=== PATIENT | female | born 1940 | race Caucasian/White ===

== ENCOUNTER 2019-04-17 02:24 | Inpatient (IN) | payer MEDICARE, MEDICAID ==
[2019-04-17] VITALS (10 sets, daily range): BP systolic 106–190; BP diastolic 55–120
[~2019-04-17] VITALS: Ht 157.5 cm; Wt 70.6 kg
[~2019-04-17 02:24] MED LIST: ALBU6.7H9 INH; ALEN70TA60 PO; ASPI-1265 PO; CALC-988 PO; CHOL200026 PO; FAMO20TA8 PO; NOR5T PO
[2019-04-17] MEDS ORDERED: nitroGLYCERIN 0.2mg/hour patch TD ONE (03:00)
[2019-04-17] MEDS ORDERED: aspirin 81mg tab.chew PO ONE (03:00)
[2019-04-17] MEDS ORDERED: methylPREDNISolone sod succ 125mg/2ml vial IV ONE (03:00)
[2019-04-17 03:11] LABS: BASOPHILS % (AUTO) 0.2 % (0-1); EOSINOPHILS # (AUTO) 0.1 X10'3 (0-0.9); EOSINOPHILS % (AUTO) 0.5 % (0-6); HEMATOCRIT 45.6 % (35.0-45.0); HEMOGLOBIN 14.8 g/dl (12.0-16.0); LYMPHOCYTES # (AUTO) 1.1 X10'3 (1.1-4.8); LYMPHOCYTES % (AUTO) 8.5 % (21-51); MEAN CORPUSCULAR HEMOGLOBIN 30.2 PG (27.0-31.0); MEAN CORPUSCULAR HGB CONC 32.4 g/dL (33.0-36.5); MEAN CORPUSCULAR VOLUME 93.1 FL (78-98); MEAN PLATELET VOLUME 9.4 FL (7.4-10.4); MONOCYTES # (AUTO) 0.9 X10'3 (0-0.9); MONOCYTES % (AUTO) 7.4 % (2-12); NEUTROPHILS # (AUTO) 10.6 X10'3 (1.8-7.7); NEUTROPHILS % (AUTO) 83.4 % (42-75); PLATELET COUNT 191 X10'3 (140-440); RED CELL DISTRIBUTION WIDTH 14.8 % (11.5-14.5); WHITE BLOOD COUNT 12.7 X10'3 (4.5-11.0)
[2019-04-17 03:18] LABS: ALANINE AMINOTRANSFERASE 27 U/L (12-78); ALBUMIN 3.6 G/DL (3.4-5.0); ALBUMIN/GLOBULIN RATIO 0.8 (1.1-1.5); ALKALINE PHOSPHATASE 74 IU/L (46-116); ANION GAP 5 (8-16); ASPARTATE AMINO TRANSFERASE 31 U/L (10-37); BILIRUBIN,TOTAL 0.6 MG/DL (0.1-1.0); BLOOD UREA NITROGEN 15 MG/DL (7-18); BUN/CREATININE RATIO 18.1 (6.6-38.0); CALCIUM 9.5 MG/DL (8.5-10.1); CHLORIDE 106 MMOL/L (99-107); CREATININE 0.83 MG/DL (0.40-0.90); GLUCOSE 147 MG/DL (70-104); POTASSIUM 4.1 MMOL/L (3.5-5.1); SODIUM 150 MMOL/L (135-145); TOTAL CARBON DIOXIDE 38.7 MMOL/L (24-32); TOTAL PROTEIN 8.1 G/DL (6.4-8.2); eGFR 67 ML/MIN
--- NOTE | 2019-04-17 03:18 | NUR ---
REWRAPPED THE PT IN WARMED BLANKET/ONE AROUND HER SHOULDERS. SHE IS COMFORTABLE.
[2019-04-17 03:26] LABS: ABG HCO3 38.4 mmol/L (22.0-26.0); ABG OXYGEN SATURATION 92.7 % (95-98); ABG PCO2 (T) 82.2 mmHg (35.0-45.0); ABG PH (T) 7.284 (7.350-7.450); ABG PO2 (T) 65.3 mmHg (83-108); FCOHb 1.5 % (0.5-1.5); FLOW 4 L/min; FMetHb 0.2 % (0.3-1.12); FO2Hb 91.1 % (94-100); PATIENT TEMPERATURE 36.4; RESPIRATORY RATE (OBSERVED) 18 b/min; TOTAL HEMOGLOBIN 14.7 G/dl (12.0-16.0)
[2019-04-17 03:27] LABS: MAGNESIUM 1.9 MG/DL (1.5-2.4)
[2019-04-17] MEDS ORDERED: magnesium 4gm in 100ml NS 100 ML IV PRN (04:10)
[2019-04-17] MEDS ORDERED: magnesium 2GM in 50ml NS 50 ML IV PRN (04:10)
[2019-04-17] MEDS ORDERED: HYDROcodone/acetaminophen 5mg/325mg tablet PO PRN (04:10)
[2019-04-17] MEDS ORDERED: potassium Cl 20 mEq SR tablet PO PRN ×2 (04:10)
[2019-04-17] MEDS ORDERED: acetaminophen 325mg tablet PO PRN ×2 (04:10)
[2019-04-17] MEDS ORDERED: diphenhydrAMINE 50 mg/ml inj IV PRN (04:10)
[2019-04-17] MEDS ORDERED: diphenhydrAMINE 25mg capsule PO PRN (04:10)
[2019-04-17] MEDS ORDERED: ondansetron/PF 4mg/2ml inj IV PRN (04:10)
[2019-04-17] MEDS ORDERED: bisacodyl 10mg suppository rectal RC PRN (04:10)
[2019-04-17] MEDS ORDERED: acetaminophen 650mg rectal suppository RC PRN (04:10)
[2019-04-17] MEDS ORDERED: potassium CL 10mEq/100ml bag 100 ML IV PRN ×2 (04:10)
[2019-04-17] MEDS ORDERED: ipratropium/albuterol 3ml nebule NEB PRN (04:10)
[2019-04-17] MEDS ORDERED: magnesium hydroxide 30ml (MOM) UD suspension PO PRN (04:10)
[2019-04-17] MEDS ORDERED: metoclopramide 5 mg/ml inj IV PRN (04:10)
[2019-04-17] MEDS ORDERED: magnesium Cl slow-release 64mg tablet PO PRN (04:10)
[2019-04-17] MEDS ORDERED: mag hydrox/Alum hydrox/simeth 30ml oral suspension PO PRN (04:10)
[2019-04-17] MEDS ORDERED: [UNRECOGNIZED DRUG - OTHER] INH (04:11)
[2019-04-17] MEDS ORDERED: MONT10TA24 PO (04:11)
[2019-04-17] MEDS ORDERED: furosemide 40mg/4ml inj IV ONE (04:15)
--- NOTE | 2019-04-17 04:19 | NUR ---
assisted RT with ABG. Gave the pt some water and turned off the lights. She said that she is feeling alot better. Improved aeration
[2019-04-17 04:21] LABS: ABG BASE EXCESS 9.3 mmol/L (-2.0-3.0); ABG HCO3 38.3 mmol/L (22.0-26.0); ABG OXYGEN SATURATION 95.4 % (95-98); ABG PCO2 (T) 72.3 mmHg (35.0-45.0); ABG PO2 (T) 72.8 mmHg (83-108); ALLEN'S TEST Positive; FCOHb 1.1 % (0.5-1.5); FMetHb 0.2 % (0.3-1.12); FO2Hb 94.2 % (94-100); MINUTE VOLUME 14 L/min; PATIENT TEMPERATURE 36.4; RESPIRATORY RATE 18 b/min; RESPIRATORY RATE (OBSERVED) 22 b/min; TIDAL VOLUME 606 mL; TOTAL HEMOGLOBIN 14.3 G/dl (12.0-16.0)
[2019-04-17] MEDS ORDERED: dextrose 5%-water 1,000 ML IV SCH (04:25)
[2019-04-17 04:45] LABS: HEMOGLOBIN A1C 5.2 % (4.5-6.2)
[2019-04-17 04:54] LABS: PHOSPHORUS 3.4 MG/DL (2.3-4.5)
--- NOTE | 2019-04-17 05:20 | NUR ---
Received report from ER about pt
--- NOTE | 2019-04-17 05:20 | NUR ---
pt arrived via [place]. she moved herself to bed and then to another bed when first one did not work. She absolutely insisted on walking to toilet to void. ambulated well with walker and stand by assistance and portable oxygen. Skin check and MRSA swab done. oriented to unit. Bed low and locked. call light given to pt. RT set up bipap. pt on mobile monitor. She was wearing brief on arrival but did allow it to be removed.
--- NOTE | 2019-04-17 05:30 | NUR ---
Skin assessment performed on pt, no abnormalities. Pt on bipap FiO2 60%, Dextrose 5% running as ordered, pt hooked up to mobile monitor, will continue to monitor vital signs. pt did ambulate to the bathroom with walker and oxygen via NC, stand by assist. bed low and locked, side rails up x2, call light is within reach
--- NOTE | 2019-04-17 06:24 | NUR ---
Problems reprioritized. Patient report given, questions answered & plan of care reviewed with Serena LAUREANO.
--- NOTE | 2019-04-17 06:27 | NUR ---
Problems reprioritized. Patient report given, questions answered & plan of care reviewed with Serena LAUREANO.
--- NOTE | 2019-04-17 06:27 | NUR ---
Orientee documentation: I have reviewed and agree with all interventions, meds given, assessments performed and documented by Carly LAUREANO.
[2019-04-17] MEDS: CefTRIAXone/D5W-Rocephin 1gm 50 ML IV SCH ×2 (06:45→10:18)
--- NOTE | 2019-04-17 07:00 | NUR ---
Patient in room PCU 3012. I have received report from Carlos LAUREANO and had the opportunity to ask questions and assume patient care.
[2019-04-17] MEDS: ipratropium/albuterol 3ml nebule NEB SCH ×5 (07:12→23:22)
--- NOTE | 2019-04-17 07:25 | NUR ---
Patient on BIPAP and breakfast tray arrives, patient requesting to eat. Suggested to patient that she may need to be on bipap for a bit to improve her respiratory status. Patient refused she stated "let me , I want to eat." Again made patient aware of risk of removing bipap too early could make things worse.
--- NOTE | 2019-04-17 07:35 | NUR ---
[place] hospitalist, "Charlette [phone] Jackie Diallo." Addendum: 04/17/19 at 0747 by Charlette Davis RN WRONG PATIENT CHART, DOCUMENTED ON WRONG PATIENT.
--- NOTE | 2019-04-17 07:46 | NUR ---
WRONG PATIENT CHART, DOCUMENTED ON WRONG PATIENT. Addendum: 04/17/19 at 0748 by Charlette Davis RN AMENDED INCORRECT NOTE
--- NOTE | 2019-04-17 07:46 | NUR ---
Paged hospitalist, "Charlette [facility]- Room 3012 Stacie ToreyJuliette has HTN of 190/120 (manual BP) HR 119, can we have PRN medication to bring it down?"
[2019-04-17] MEDS: enoxaparin 40mg/0.4ml syringe SUBCUT SCH (08:00)
[2019-04-17] MEDS ORDERED: aspirin 81mg tab.chew PO SCH (08:00)
[2019-04-17] MEDS: K and/or MAG REPLACEMENT MC SCH (08:00)
[2019-04-17] MEDS: amLODIPine 5mg tablet PO SCH (08:10)
[2019-04-17] MEDS: furosemide 40mg/4ml inj IV SCH ×2 (08:10→19:59)
--- NOTE | 2019-04-17 08:15 | NUR ---
Patient has been given amlodipine and lasix as requested by her primary nurse, Charlette. Patients BP 160/68 with a MAP of (88).
[2019-04-17] MEDS: famotidine 20mg tablet PO SCH ×2 (10:17→19:59)
[2019-04-17] MEDS: methylPREDNISolone sod succ/PF 40mg inj. IV SCH ×3 (10:17→19:59)
[2019-04-17] MEDS: aspirin 81mg tablet.DR PO SCH (10:18)
[2019-04-17] MEDS: lactobacillus rhamnosus 10,000 MMU CELLS/CAPSULE PO SCH ×2 (10:35→19:59)
[2019-04-17] MEDS ORDERED: FLUT16SP26 (14:03)
--- NOTE | 2019-04-17 20:55 | NUR ---
Patient in room PCU 3012. I have received report from Charlette and had the opportunity to ask questions and assume patient care. Chart was reviewed.
[2019-04-17] MEDS ORDERED: temazepam 15mg capsule PO PRN (21:00)
[2019-04-18] MEDS: methylPREDNISolone sod succ/PF 40mg inj. IV SCH ×4 (02:04→20:58)
[2019-04-18 03:00] VITALS: BP 137/66
[2019-04-18 06:00] VITALS: BP 144/70
[2019-04-18 06:10] LABS: BASOPHILS % (AUTO) 0 % (0-1); EOSINOPHILS % (AUTO) 0 % (0-6); HEMATOCRIT 42.4 % (35.0-45.0); HEMOGLOBIN 13.8 g/dl (12.0-16.0); LYMPHOCYTES # (AUTO) 0.3 X10'3 (1.1-4.8); LYMPHOCYTES % (AUTO) 1.6 % (21-51); MEAN CORPUSCULAR HEMOGLOBIN 30.2 PG (27.0-31.0); MEAN CORPUSCULAR HGB CONC 32.6 g/dL (33.0-36.5); MEAN CORPUSCULAR VOLUME 92.6 FL (78-98); MEAN PLATELET VOLUME 9.5 FL (7.4-10.4); MONOCYTES # (AUTO) 0.4 X10'3 (0-0.9); MONOCYTES % (AUTO) 2.5 % (2-12); NEUTROPHILS # (AUTO) 15.8 X10'3 (1.8-7.7); NEUTROPHILS % (AUTO) 95.9 % (42-75); PLATELET COUNT 193 X10'3 (140-440); RED BLOOD COUNT 4.58 X10'6 (4.20-5.60); RED CELL DISTRIBUTION WIDTH 14.8 % (11.5-14.5); WHITE BLOOD COUNT 16.5 X10'3 (4.5-11.0)
[2019-04-18 06:14] LABS: ALANINE AMINOTRANSFERASE 22 U/L (12-78); ALBUMIN 3.4 G/DL (3.4-5.0); ALBUMIN/GLOBULIN RATIO 0.8 (1.1-1.5); ALKALINE PHOSPHATASE 64 IU/L (46-116); ANION GAP 3 (8-16); ASPARTATE AMINO TRANSFERASE 18 U/L (10-37); BILIRUBIN,TOTAL 0.3 MG/DL (0.1-1.0); BLOOD UREA NITROGEN 31 MG/DL (7-18); CALCIUM 9.1 MG/DL (8.5-10.1); CHLORIDE 105 MMOL/L (99-107); CHOL/HDL RATIO 2.1 (0.00-4.99); CHOLESTEROL 179 MG/DL (0-200); CREATININE 0.94 MG/DL (0.40-0.90); GLUCOSE 161 MG/DL (70-104); HDL CHOLESTEROL 85 MG/DL (35-60); LDL CHOLESTEROL 85 MG/DL (50-100); MAGNESIUM 1.9 MG/DL (1.5-2.4); PHOSPHORUS 2.2 MG/DL (2.3-4.5); POTASSIUM 3.6 MMOL/L (3.5-5.1); SODIUM 149 MMOL/L (135-145); TOTAL PROTEIN 7.6 G/DL (6.4-8.2); TRIGLYCERIDES 34 MG/DL (20-135); eGFR 58 ML/MIN
[2019-04-18 06:25] LABS: TOTAL CARBON DIOXIDE 40.6 MMOL/L (24-32)
--- NOTE | 2019-04-18 06:30 | NUR ---
Patient in room PCU 3012. I have received report from Cristian LAUREANO and Con RN and had the opportunity to ask questions and assume patient care.
--- NOTE | 2019-04-18 06:34 | NUR ---
Reported to Dr. Sigala in regards to critical CO2 of 40.6, no new orders at this time.
--- NOTE | 2019-04-18 06:34 | NUR ---
Problems reprioritized. Patient report given, questions answered & plan of care reviewed with Carmella.
[2019-04-18] MEDS: ipratropium/albuterol 3ml nebule NEB SCH ×5 (07:20→23:42)
[2019-04-18] MEDS: famotidine 20mg tablet PO SCH ×2 (07:27→20:59)
[2019-04-18] MEDS: CefTRIAXone/D5W-Rocephin 1gm 50 ML IV SCH (07:27)
[2019-04-18] MEDS: amLODIPine 5mg tablet PO SCH (07:27)
[2019-04-18] MEDS: lactobacillus rhamnosus 10,000 MMU CELLS/CAPSULE PO SCH ×2 (07:27→20:59)
[2019-04-18] MEDS: furosemide 40mg/4ml inj IV SCH (07:28)
[2019-04-18] MEDS: enoxaparin 40mg/0.4ml syringe SUBCUT SCH (07:37)
[2019-04-18] MEDS: K and/or MAG REPLACEMENT MC SCH (08:00)
[2019-04-18] MEDS: aspirin 81mg tablet.DR PO SCH (08:27)
[2019-04-18 11:00] VITALS: BP 110/63
--- NOTE | 2019-04-18 11:23 | NUR ---
PAGER ID: [phone] MESSAGE: [id number] Juliette Lema: NIURKA HR is trending in the 100's-110's at rest and up to 130's with activity, pt denies discomfort and asymptamatic. Thanks Jacquelin [phone]
[2019-04-18 15:00] VITALS: BP 136/53
[2019-04-18 16:11] LABS: ABG BASE EXCESS 12.2 mmol/L (-2.0-3.0); ABG HCO3 38.8 mmol/L (22.0-26.0); ABG OXYGEN SATURATION 92.9 % (95-98); ABG PCO2 (T) 57.4 mmHg (35.0-45.0); ABG PH (T) 7.448 (7.350-7.450); ABG PO2 (T) 59.4 mmHg (83-108); ALLEN'S TEST Positive; FCOHb 0.7 % (0.5-1.5); FLOW 1 L/min; FMetHb 0.5 % (0.3-1.12); FO2Hb 91.8 % (94-100); TOTAL HEMOGLOBIN 14.7 G/dl (12.0-16.0)
[2019-04-18 18:00] VITALS: BP 131/50
--- NOTE | 2019-04-18 18:44 | NUR ---
Problems reprioritized. Patient report given, questions answered & plan of care reviewed with Mirella LAUREANO.
--- NOTE | 2019-04-18 19:03 | NUR ---
Patient in room PCU 3012. I have received report from zafar Alejo and had the opportunity to ask questions and assume patient care.
[2019-04-18] MEDS: magnesium Cl slow-release 64mg tablet PO SCH (21:00)
[2019-04-18] MEDS: Neutra Phos packet PO SCH (21:01)
[2019-04-18 23:00] VITALS: BP 136/53
[2019-04-19] MEDS: methylPREDNISolone sod succ/PF 40mg inj. IV SCH ×3 (02:00→13:38)
[2019-04-19 03:00] VITALS: BP 157/69
[2019-04-19 06:00] VITALS: BP 154/86
[2019-04-19 06:08] LABS: BASOPHILS % (AUTO) 0 % (0-1); EOSINOPHILS % (AUTO) 0 % (0-6); HEMATOCRIT 43.1 % (35.0-45.0); HEMOGLOBIN 13.9 g/dl (12.0-16.0); LYMPHOCYTES # (AUTO) 0.2 X10'3 (1.1-4.8); LYMPHOCYTES % (AUTO) 1.2 % (21-51); MEAN CORPUSCULAR HGB CONC 32.2 g/dL (33.0-36.5); MEAN CORPUSCULAR VOLUME 93.2 FL (78-98); MEAN PLATELET VOLUME 9.6 FL (7.4-10.4); MONOCYTES # (AUTO) 0.4 X10'3 (0-0.9); MONOCYTES % (AUTO) 2.4 % (2-12); NEUTROPHILS # (AUTO) 15.9 X10'3 (1.8-7.7); NEUTROPHILS % (AUTO) 96.4 % (42-75); PLATELET COUNT 212 X10'3 (140-440); RED BLOOD COUNT 4.63 X10'6 (4.20-5.60); RED CELL DISTRIBUTION WIDTH 15.1 % (11.5-14.5); WHITE BLOOD COUNT 16.5 X10'3 (4.5-11.0)
--- NOTE | 2019-04-19 06:15 | NUR ---
Problems reprioritized. Patient report given, questions answered & plan of care reviewed with Jacquelin LAUREANO.
[2019-04-19 06:35] LABS: ALANINE AMINOTRANSFERASE 20 U/L (12-78); ALBUMIN 3.3 G/DL (3.4-5.0); ALBUMIN/GLOBULIN RATIO 0.8 (1.1-1.5); ALKALINE PHOSPHATASE 58 IU/L (46-116); ANION GAP 5 (8-16); ASPARTATE AMINO TRANSFERASE 17 U/L (10-37); BILIRUBIN,TOTAL 0.3 MG/DL (0.1-1.0); BLOOD UREA NITROGEN 48 MG/DL (7-18); BUN/CREATININE RATIO 46.2 (6.6-38.0); CHLORIDE 105 MMOL/L (99-107); CREATININE 1.04 MG/DL (0.40-0.90); GLUCOSE 147 MG/DL (70-104); MAGNESIUM 2.2 MG/DL (1.5-2.4); PHOSPHORUS 3.8 MG/DL (2.3-4.5); SODIUM 152 MMOL/L (135-145); TOTAL PROTEIN 7.3 G/DL (6.4-8.2); eGFR 51 ML/MIN
[2019-04-19 07:01] LABS: TOTAL CARBON DIOXIDE 41.6 MMOL/L (24-32)
[2019-04-19] MEDS: ipratropium/albuterol 3ml nebule NEB SCH ×3 (07:16→15:14)
[2019-04-19] MEDS: enoxaparin 40mg/0.4ml syringe SUBCUT SCH ×2 (08:00→08:55)
[2019-04-19] MEDS ORDERED: furosemide 40mg tablet PO SCH (08:00)
[2019-04-19] MEDS: K and/or MAG REPLACEMENT MC SCH (08:00)
[2019-04-19] MEDS: lactobacillus rhamnosus 10,000 MMU CELLS/CAPSULE PO SCH (08:51)
[2019-04-19] MEDS: amLODIPine 5mg tablet PO SCH (08:53)
[2019-04-19] MEDS: aspirin 81mg tablet.DR PO SCH (08:53)
[2019-04-19] MEDS: Neutra Phos packet PO SCH ×2 (08:54→13:38)
[2019-04-19] MEDS: CefTRIAXone/D5W-Rocephin 1gm 50 ML IV SCH (08:54)
[2019-04-19] MEDS: magnesium Cl slow-release 64mg tablet PO SCH (08:54)
[2019-04-19] MEDS: famotidine 20mg tablet PO SCH (08:54)
[2019-04-19] MEDS: acetaZOLAMIDE 250mg tablet PO SCH ×3 (08:58→16:44)
--- NOTE | 2019-04-19 11:39 | NUR ---
PAGER ID: [phone] MESSAGE: [phone] Juliette Lema: NIURKA she states she can not go back home and will want to go to [facility], I will inform case management. Thanks Jacquelin
[2019-04-19 14:31] LABS: ALBUMIN 3.3 G/DL (3.4-5.0); ANION GAP 6 (8-16); BLOOD UREA NITROGEN 49 MG/DL (7-18); BUN/CREATININE RATIO 45.8 (6.6-38.0); CALCIUM 9.3 MG/DL (8.5-10.1); CHLORIDE 104 MMOL/L (99-107); CREATININE 1.07 MG/DL (0.40-0.90); GLUCOSE 172 MG/DL (70-104); POTASSIUM 3.4 MMOL/L (3.5-5.1); SODIUM 149 MMOL/L (135-145); TOTAL CARBON DIOXIDE 39.1 MMOL/L (24-32); eGFR 50 ML/MIN
[2019-04-19 14:40] LABS: ABG BASE EXCESS 12.3 mmol/L (-2.0-3.0); ABG HCO3 40.1 mmol/L (22.0-26.0); ABG PCO2 (T) 65.3 mmHg (35.0-45.0); ABG PH (T) 7.406 (7.350-7.450); ABG PO2 (T) 75.1 mmHg (83-108); FCOHb 0.2 % (0.5-1.5); FLOW 2 L/min; FMetHb 0.3 % (0.3-1.12); FO2Hb 94.5 % (94-100); TOTAL HEMOGLOBIN 14.8 G/dl (12.0-16.0)
[2019-04-19 15:00] VITALS: BP 130/71
--- NOTE | 2019-04-19 15:16 | NUR ---
PAGER ID: [phone] MESSAGE: # [id number], K, received ABG, CO2 is up to 65.3 from 57.4, post BiPap. Thank you. -GEORGI Polanco
[2019-04-19] MEDS ORDERED: ACET250T3 PO (15:36)
[2019-04-19] MEDS ORDERED: AMOX-422 PO (15:36)
[2019-04-19] MEDS ORDERED: PRED20TA PO (15:36)
--- NOTE | 2019-04-19 17:45 | NUR ---
Pt is stable for discharge per md orders, discharge instructions reviewed w/ pt and caregiver all questions answered, new medication prescription called in to [facility] per pt preference, tele monitor 59 removed and returned, PIV d/c'ed and clean dry dressing in place, Pt wheeled to lobby with hospital staff, Pt discharged at 1730 w/ caregiver in private vehicle, all belongings w/ pt at time of discharge.
[2019-04-20] MEDS ORDERED: furosemide 40mg tablet PO SCH (08:00)
== END 2019-04-19 17:30 | disposition home health service (06) | DRG 189 ==
LOC: ER 02:24 → PCU 3S 05:04 → CMPBEDREQ 05:07
PROVIDERS: ADMIT Family Medicine; ATTEND Family Medicine
PROC: 5A09357 Assistance with Respiratory Ventilation, Less than 24 Consecutive Hours, Continuous Positive Airway Pressure (ICD-10-PCS; principal; 2019-04-17)
PROC: 5A09357 Assistance with Respiratory Ventilation, Less than 24 Consecutive Hours, Continuous Positive Airway Pressure (ICD-10-PCS; 2019-04-19)
DX: J96.22 Acute and chronic respiratory failure with hypercapnia (principal); I50.33 Acute on chronic diastolic (congestive) heart failure; I21.A1 Myocardial infarction type 2; I13.0 Hypertensive heart and chronic kidney disease with heart failure and stage 1 through stage 4 chronic kidney disease, or unspecified chronic kidney disease; J44.1 Chronic obstructive pulmonary disease with (acute) exacerbation; I24.9 Acute ischemic heart disease, unspecified; E87.0 Hyperosmolality and hypernatremia; J96.21 Acute and chronic respiratory failure with hypoxia; G47.33 Obstructive sleep apnea (adult) (pediatric); M81.0 Age-related osteoporosis without current pathological fracture; N18.9 Chronic kidney disease, unspecified; Z91.19 Patient's noncompliance with other medical treatment and regimen; Z99.81 Dependence on supplemental oxygen; Z91.041 Radiographic dye allergy status; Z91.048 Other nonmedicinal substance allergy status; Z85.05 Personal history of malignant neoplasm of liver
CPT/HCPCS: 36415; 36600; 71045; 80048; 80053; 80061; 82803; 83036; 83735; 83880; 84100; 84443; 84484; 85018; 85025; 85610; 87081; 93005; 94640; 94660; 94760; 96374; 96375; 97112; 97116; 97161; 97530; 97535; 99285; G0378; J0696; J1650; J1940; J2920; J2930; J7070

== ENCOUNTER 2019-06-02 12:02 | Emergency (ER) | payer MEDICARE, MEDICAID ==
[~2019-06-02] VITALS: Ht 165.1 cm; Wt 62.0 kg
[~2019-06-02 12:02] MED LIST changes: +ACET250T3 PO; +FLUT16SP26; +MONT10TA24 PO
--- NOTE | 2019-06-02 12:27 | NUR ---
PT CAREGIVER IS MARIETTASA GUADALUPE, LEAVING THE BEDSIDE, CONTACT INFO CELL: [id number]. OK TO SHARE MEDICAL INFORMATION WITH.
[2019-06-02] MEDS ORDERED: ipratropium/albuterol 3ml nebule NEB ONE (12:30)
--- NOTE | 2019-06-02 12:34 | NUR ---
updated pt katy to level 3, pt is stable, sp02 97% on 2l nc. pt wheres 2l nc home o2.
[2019-06-02 12:37] LABS: BASOPHILS % (AUTO) 0.5 % (0-1); EOSINOPHILS # (AUTO) 0.2 X10'3 (0-0.9); EOSINOPHILS % (AUTO) 1.9 % (0-6); HEMATOCRIT 42.9 % (35.0-45.0); LYMPHOCYTES % (AUTO) 10.4 % (21-51); MEAN CORPUSCULAR HEMOGLOBIN 30.2 PG (27.0-31.0); MEAN CORPUSCULAR HGB CONC 32.7 g/dL (33.0-36.5); MEAN CORPUSCULAR VOLUME 92.3 FL (78-98); MEAN PLATELET VOLUME 9.3 FL (7.4-10.4); MONOCYTES # (AUTO) 0.8 X10'3 (0-0.9); MONOCYTES % (AUTO) 7.9 % (2-12); NEUTROPHILS # (AUTO) 7.6 X10'3 (1.8-7.7); NEUTROPHILS % (AUTO) 79.3 % (42-75); PLATELET COUNT 172 X10'3 (140-440); RED BLOOD COUNT 4.65 X10'6 (4.20-5.60); RED CELL DISTRIBUTION WIDTH 14.9 % (11.5-14.5); WHITE BLOOD COUNT 9.6 X10'3 (4.5-11.0)
[2019-06-02 12:52] LABS: PARTIAL THROMBOPLASTIN TIME 26 SECONDS (22-32)
[2019-06-02 12:54] LABS: ALANINE AMINOTRANSFERASE 18 U/L (12-78); ALBUMIN 3.7 G/DL (3.4-5.0); ALBUMIN/GLOBULIN RATIO 0.8 (1.1-1.5); ALKALINE PHOSPHATASE 71 IU/L (46-116); ANION GAP 2 (8-16); ASPARTATE AMINO TRANSFERASE 24 U/L (10-37); BILIRUBIN,TOTAL 0.4 MG/DL (0.1-1.0); BLOOD UREA NITROGEN 20 MG/DL (7-18); BUN/CREATININE RATIO 28.6 (6.6-38.0); CALCIUM 9.4 MG/DL (8.5-10.1); CHLORIDE 104 MMOL/L (99-107); GLUCOSE 118 MG/DL (70-104); POTASSIUM 4.7 MMOL/L (3.5-5.1); SODIUM 145 MMOL/L (135-145); TOTAL CARBON DIOXIDE 39.2 MMOL/L (24-32); TOTAL PROTEIN 8.1 G/DL (6.4-8.2); eGFR 81 ML/MIN
[2019-06-02 13:22] VITALS: BP 160/98
== END 2019-06-02 14:03 | disposition home or self-care (01) ==
LOC: ER 12:03
DX: R06.00 Dyspnea, unspecified (principal); R06.02 Shortness of breath; R60.0 Localized edema; I10 Essential (primary) hypertension; J44.9 Chronic obstructive pulmonary disease, unspecified; M81.0 Age-related osteoporosis without current pathological fracture; Z87.891 Personal history of nicotine dependence; Z88.8 Allergy status to other drugs, medicaments and biological substances; Z79.82 Long term (current) use of aspirin; Z79.899 Other long term (current) drug therapy; Z99.81 Dependence on supplemental oxygen
CPT/HCPCS: 36415; 71045; 80053; 83605; 83880; 85025; 85610; 85730; 87040; 93005; 94640; 94760; 99284

== ENCOUNTER 2019-06-16 18:31 | Inpatient (IN) | payer MEDICARE, MEDICAID ==
[~2019-06-16] VITALS: Ht 157.5 cm; Wt 85.0 kg
[2019-06-16] MEDS ORDERED: ipratropium/albuterol 3ml nebule NEB ONE (18:45)
[2019-06-16] MEDS ORDERED: methylPREDNISolone sod succ 125mg/2ml vial IV ONE (18:45)
[2019-06-16] MEDS ORDERED: furosemide 40mg/4ml inj IV ONE (18:45)
[2019-06-16 18:56] LABS: ABG BASE EXCESS 8.1 mmol/L (-2.0-3.0); ABG HCO3 37.8 mmol/L (22.0-26.0); ABG OXYGEN SATURATION 91.2 % (95-98); ABG PCO2 (T) 79.6 mmHg (35.0-45.0); ABG PH (T) 7.295 (7.350-7.450); ABG PO2 (T) 65.5 mmHg (83-108); FCOHb 1.4 % (0.5-1.5); FLOW 2 L/min; FMetHb 0.2 % (0.3-1.12); FO2Hb 89.7 % (94-100); PATIENT TEMPERATURE 37.2; RESPIRATORY RATE (OBSERVED) 26 b/min; TOTAL HEMOGLOBIN 14.3 G/dl (12.0-16.0)
[2019-06-16 19:07] LABS: BASOPHILS % (AUTO) 0.5 % (0-1); EOSINOPHILS # (AUTO) 0.2 X10'3 (0-0.9); EOSINOPHILS % (AUTO) 1.6 % (0-6); HEMATOCRIT 41.4 % (35.0-45.0); HEMOGLOBIN 13.6 g/dl (12.0-16.0); LYMPHOCYTES # (AUTO) 0.9 X10'3 (1.1-4.8); LYMPHOCYTES % (AUTO) 9.1 % (21-51); MEAN CORPUSCULAR HEMOGLOBIN 30.5 PG (27.0-31.0); MEAN CORPUSCULAR HGB CONC 32.9 g/dL (33.0-36.5); MEAN CORPUSCULAR VOLUME 92.5 FL (78-98); MEAN PLATELET VOLUME 9.1 FL (7.4-10.4); MONOCYTES # (AUTO) 0.7 X10'3 (0-0.9); MONOCYTES % (AUTO) 6.7 % (2-12); NEUTROPHILS # (AUTO) 8.4 X10'3 (1.8-7.7); NEUTROPHILS % (AUTO) 82.1 % (42-75); PLATELET COUNT 183 X10'3 (140-440); RED BLOOD COUNT 4.48 X10'6 (4.20-5.60); RED CELL DISTRIBUTION WIDTH 14.9 % (11.5-14.5); WHITE BLOOD COUNT 10.2 X10'3 (4.5-11.0)
--- NOTE | 2019-06-16 19:14 | NUR ---
assisting RN with pt care, RT at bedside to place pt on bipap, pt is refusing lasix at this time "I don't need that and I don't want it", explained the benefits of medication and pt still refused
--- NOTE | 2019-06-16 19:19 | NUR ---
pt is tolerating the bipap well
[2019-06-16 19:20] LABS: PARTIAL THROMBOPLASTIN TIME 25 SECONDS (22-32)
[2019-06-16] MEDS ORDERED: nitroGLYCERIN-Tridil 50MG/D5W 250 ML IV SCH (19:30)
[2019-06-16 19:35] LABS: ALANINE AMINOTRANSFERASE 11 U/L (12-78); ALBUMIN 3.5 G/DL (3.4-5.0); ALBUMIN/GLOBULIN RATIO 0.9 (1.1-1.5); ALKALINE PHOSPHATASE 66 IU/L (46-116); ANION GAP 1 (8-16); ASPARTATE AMINO TRANSFERASE 21 U/L (10-37); BILIRUBIN,TOTAL 0.3 MG/DL (0.1-1.0); BLOOD UREA NITROGEN 21 MG/DL (7-18); BUN/CREATININE RATIO 25.3 (6.6-38.0); CALCIUM 9.5 MG/DL (8.5-10.1); CHLORIDE 101 MMOL/L (99-107); CREATININE 0.83 MG/DL (0.40-0.90); GLUCOSE 135 MG/DL (70-104); POTASSIUM 4.5 MMOL/L (3.5-5.1); SODIUM 141 MMOL/L (135-145); TOTAL CARBON DIOXIDE 39.4 MMOL/L (24-32); TOTAL PROTEIN 7.6 G/DL (6.4-8.2); eGFR 67 ML/MIN
[2019-06-16] MEDS ORDERED: magnesium Cl slow-release 64mg tablet PO PRN (19:45)
[2019-06-16] MEDS ORDERED: magnesium 4gm in 100ml NS 100 ML IV PRN (19:45)
[2019-06-16] MEDS ORDERED: ondansetron/PF 4mg/2ml inj IV PRN (19:45)
[2019-06-16] MEDS ORDERED: potassium Cl 20 mEq SR tablet PO PRN ×2 (19:45)
[2019-06-16] MEDS ORDERED: ipratropium/albuterol 3ml nebule NEB PRN (19:45)
[2019-06-16] MEDS ORDERED: acetaminophen 325mg tablet PO PRN (19:45)
[2019-06-16] MEDS ORDERED: potassium CL 10mEq/100ml bag 100 ML IV PRN ×2 (19:45)
[2019-06-16] MEDS ORDERED: magnesium 2GM in 50ml NS 50 ML IV PRN (19:45)
[2019-06-16] MEDS: ipratropium/albuterol 3ml nebule NEB SCH ×2 (20:00→23:33)
[2019-06-16] MEDS: methylPREDNISolone sod succ 125mg/2ml vial IV SCH (20:00)
--- NOTE | 2019-06-16 20:00 | NUR ---
Nitro drip started at 10mcg/min per Dr. Landon verbal order
--- NOTE | 2019-06-16 20:44 | NUR ---
Patient in room ED 5. I have received report from Rafita LAUREANO in the ED and had the opportunity to ask questions and awaiting arrival of patient to the PCU unit who will be going into room 3025J.
--- NOTE | 2019-06-16 21:00 | NUR ---
Patient arrived to PCU unit at this time from the ER and alert and oriented at this time. She is able to make her needs known. She is transferred from the [facility] to the bed with a slideboard. She is on a Nitro gtt going at 10mcg/min. She is placed on 2 liters oxygen nasal cannula. Bipap at bedside as needed and RT said that she does not need it at this time because she is no longer demonstrating respiratory distress like when she came in. Will continue to monitor.
[2019-06-16 21:15] VITALS: BP 150/77
[2019-06-16 21:30] VITALS: BP 154/92
[2019-06-16 21:45] VITALS: BP 156/105
[2019-06-16] MEDS: heparin, porcine 5000 units/ml vial SQ SCH (21:50)
[2019-06-16 22:00] VITALS: BP 170/93
[2019-06-16 22:30] VITALS: BP 146/91
[2019-06-16] MEDS: levoFLOXACIN-Levaquin 500mg/D5 100 ML IV SCH (22:46)
[2019-06-16 23:00] VITALS: BP 145/71
[2019-06-17] VITALS (9 sets, daily range): BP systolic 86–156; BP diastolic 62–83
[2019-06-17 01:17] LABS: BASOPHILS % (AUTO) 0.2 % (0-1); EOSINOPHILS % (AUTO) 0.1 % (0-6); HEMATOCRIT 39.7 % (35.0-45.0); HEMOGLOBIN 13.4 g/dl (12.0-16.0); LYMPHOCYTES # (AUTO) 0.6 X10'3 (1.1-4.8); LYMPHOCYTES % (AUTO) 5.6 % (21-51); MEAN CORPUSCULAR HEMOGLOBIN 30.7 PG (27.0-31.0); MEAN CORPUSCULAR HGB CONC 33.7 g/dL (33.0-36.5); MEAN CORPUSCULAR VOLUME 91.2 FL (78-98); MEAN PLATELET VOLUME 9.3 FL (7.4-10.4); MONOCYTES # (AUTO) 0.1 X10'3 (0-0.9); MONOCYTES % (AUTO) 0.9 % (2-12); NEUTROPHILS # (AUTO) 9.4 X10'3 (1.8-7.7); NEUTROPHILS % (AUTO) 93.2 % (42-75); PLATELET COUNT 185 X10'3 (140-440); RED BLOOD COUNT 4.35 X10'6 (4.20-5.60); RED CELL DISTRIBUTION WIDTH 14.9 % (11.5-14.5); WHITE BLOOD COUNT 10.1 X10'3 (4.5-11.0)
[2019-06-17 01:34] LABS: ALBUMIN 3.3 G/DL (3.4-5.0); ANION GAP 4 (8-16); BLOOD UREA NITROGEN 21 MG/DL (7-18); BUN/CREATININE RATIO 25.9 (6.6-38.0); CALCIUM 9.4 MG/DL (8.5-10.1); CHLORIDE 99 MMOL/L (99-107); CREATININE 0.81 MG/DL (0.40-0.90); GLUCOSE 180 MG/DL (70-104); MAGNESIUM 1.6 MG/DL (1.5-2.4); POTASSIUM 3.6 MMOL/L (3.5-5.1); SODIUM 142 MMOL/L (135-145); TOTAL CARBON DIOXIDE 38.6 MMOL/L (24-32); eGFR 69 ML/MIN
[2019-06-17] MEDS: ipratropium/albuterol 3ml nebule NEB SCH ×5 (02:53→22:54)
--- NOTE | 2019-06-17 06:29 | NUR ---
Problems reprioritized. Patient report given, questions answered & plan of care reviewed with Nabila RN.
--- NOTE | 2019-06-17 06:47 | NUR ---
Patient in room PCU 3025. I have received report from GEORGI Glez and had the opportunity to ask questions and assume patient care.
[2019-06-17] MEDS: pantoprazole 40mg Tablet.DR PO SCH (07:21)
[2019-06-17] MEDS: levoFLOXACIN-Levaquin 500mg/D5 100 ML IV SCH (07:22)
[2019-06-17] MEDS: methylPREDNISolone sod succ 125mg/2ml vial IV SCH (07:29)
[2019-06-17] MEDS: heparin, porcine 5000 units/ml vial SQ SCH ×3 (07:30→19:36)
[2019-06-17] MEDS: K and/or MAG REPLACEMENT MC SCH (07:30)
--- NOTE | 2019-06-17 12:14 | NUR ---
Med rec completed to the best of my ability. The pt does not know the names of any of the medications she takes. Christiano Morales was called to review the med rec, because the pt stated that he picks up her Rx and knows what she's currently taking. A voicemail was left, as he did not answer. The pt's pharmacy was called in order to review the current med list. They stated that the pt has not picked up the Rx's since November and February of this year. Dr Aguilar informed.
--- NOTE | 2019-06-17 12:36 | NUR ---
Sent to Dr Aguilar PAGER ID: [phone] MESSAGE: RE: Juliette Lema [id number]. BP 183/141 and HR >120. -Nabila [phone]
[2019-06-17] MEDS ORDERED: furosemide 20 MG/2 ML vial IV ONE (12:40)
--- NOTE | 2019-06-17 18:00 | NUR ---
Patient in room PCU 3025. I have received report from Nabila LAUREANO and had the opportunity to ask questions and assume patient care.
--- NOTE | 2019-06-17 18:21 | NUR ---
Problems reprioritized. Patient report given, questions answered & plan of care reviewed with GEORGI Carroll.
[2019-06-17] MEDS: furosemide 20 MG/2 ML vial IV SCH (19:36)
[2019-06-17] MEDS: methylPREDNISolone sod succ/PF 40mg inj. IV SCH (19:36)
[2019-06-17] MEDS: lactobacillus rhamnosus 10,000 MMU CELLS/CAPSULE PO SCH (19:37)
[2019-06-18] MEDS: ipratropium/albuterol 3ml nebule NEB SCH ×2 (02:47→08:13)
[2019-06-18 05:22] LABS: BASOPHILS % (AUTO) 0.2 % (0-1); EOSINOPHILS % (AUTO) 0 % (0-6); HEMATOCRIT 38.8 % (35.0-45.0); HEMOGLOBIN 12.8 g/dl (12.0-16.0); LYMPHOCYTES # (AUTO) 0.3 X10'3 (1.1-4.8); LYMPHOCYTES % (AUTO) 2.2 % (21-51); MEAN CORPUSCULAR HEMOGLOBIN 30.2 PG (27.0-31.0); MEAN CORPUSCULAR HGB CONC 33.1 g/dL (33.0-36.5); MEAN CORPUSCULAR VOLUME 91.2 FL (78-98); MEAN PLATELET VOLUME 9.7 FL (7.4-10.4); MONOCYTES # (AUTO) 0.5 X10'3 (0-0.9); MONOCYTES % (AUTO) 3.4 % (2-12); NEUTROPHILS # (AUTO) 13.9 X10'3 (1.8-7.7); NEUTROPHILS % (AUTO) 94.2 % (42-75); PLATELET COUNT 175 X10'3 (140-440); RED BLOOD COUNT 4.25 X10'6 (4.20-5.60); RED CELL DISTRIBUTION WIDTH 15.1 % (11.5-14.5); WHITE BLOOD COUNT 14.8 X10'3 (4.5-11.0)
[2019-06-18 05:31] LABS: D-DIMER 1.71 MG/L FEU (0-0.50)
[2019-06-18 05:37] LABS: ALBUMIN 3.1 G/DL (3.4-5.0); ANION GAP 4 (8-16); BLOOD UREA NITROGEN 44 MG/DL (7-18); BUN/CREATININE RATIO 31.2 (6.6-38.0); CALCIUM 9.3 MG/DL (8.5-10.1); CHLORIDE 103 MMOL/L (99-107); CREATININE 1.41 MG/DL (0.40-0.90); GLUCOSE 157 MG/DL (70-104); POTASSIUM 3.9 MMOL/L (3.5-5.1); SODIUM 144 MMOL/L (135-145); TOTAL CARBON DIOXIDE 36.6 MMOL/L (24-32); eGFR 36 ML/MIN
[2019-06-18 06:00] VITALS: BP 145/60
--- NOTE | 2019-06-18 06:16 | NUR ---
Problems reprioritized. Patient report given, questions answered & plan of care reviewed with Nabila RN.
--- NOTE | 2019-06-18 06:17 | NUR ---
Patient in room PCU 3025. I have received report from GEORGI Carroll and had the opportunity to ask questions and assume patient care.
[2019-06-18] MEDS: K and/or MAG REPLACEMENT MC SCH (07:20)
[2019-06-18] MEDS: pantoprazole 40mg Tablet.DR PO SCH (07:20)
[2019-06-18] MEDS: lactobacillus rhamnosus 10,000 MMU CELLS/CAPSULE PO SCH (07:20)
[2019-06-18] MEDS: methylPREDNISolone sod succ/PF 40mg inj. IV SCH (07:20)
[2019-06-18] MEDS: furosemide 20 MG/2 ML vial IV SCH (07:20)
[2019-06-18] MEDS: heparin, porcine 5000 units/ml vial SQ SCH (07:21)
[2019-06-18] MEDS ORDERED: FURO40TA4 PO (08:48)
--- NOTE | 2019-06-18 10:50 | NUR ---
Pt dischared. IV d/c'd, tele removed, all belongings sent with pt. Left with [facility] worker in private vehicle. Pt left without oxygen. The pt made a lap around the unit as her O2 sat was monitored. She maintained a saturation of 89-90%. The pt stated her portable O2 is not working and they are getting it fixed or getting a new one. The pt left without her portable O2 and stated she will be fine until she gets home on [facility], where she has home O2.
[2019-06-18] MEDS ORDERED: levoFLOXACIN 500mg tablet PO SCH (11:00)
[2019-07-25] MEDS ORDERED: FURO80TA87 PO (10:56)
[2019-07-25] MEDS ORDERED: FAMO20TA8 PO (13:04)
[2019-07-25] MEDS ORDERED: AMLO10TA PO (13:04)
[2019-07-25] MEDS ORDERED: ALBU8.5H8 IH (13:04)
== END 2019-06-18 10:50 | disposition home health service (06) | DRG 189 ==
LOC: ER 18:31 → ED HOLD 19:42 → PCU 3S 20:59
PROVIDERS: ADMIT Internal Medicine; ATTEND Internal Medicine
DX: J96.22 Acute and chronic respiratory failure with hypercapnia (principal); J44.1 Chronic obstructive pulmonary disease with (acute) exacerbation; J81.1 Chronic pulmonary edema; J96.21 Acute and chronic respiratory failure with hypoxia; I50.9 Heart failure, unspecified; I11.0 Hypertensive heart disease with heart failure; G47.30 Sleep apnea, unspecified; M81.0 Age-related osteoporosis without current pathological fracture; Z66 Do not resuscitate; Z99.81 Dependence on supplemental oxygen; Z87.891 Personal history of nicotine dependence; Z91.041 Radiographic dye allergy status; Z91.048 Other nonmedicinal substance allergy status; Z79.899 Other long term (current) drug therapy
CPT/HCPCS: 36415; 36600; 71045; 80048; 80053; 82803; 83605; 83735; 83880; 84484; 85018; 85025; 85379; 85610; 85730; 87040; 87081; 93005; 93306; 94640; 94660; 94760; 96374; 97116; 97161; 97530; 99285; G0378; J1644; J1940; J1956; J2920; J2930; J3490

== ENCOUNTER 2019-09-12 09:39 | Emergency (ER) | payer MEDICARE, MEDICAID ==
[~2019-09-12] VITALS: Ht 162.6 cm; Wt 70.0 kg
[~2019-09-12 09:39] MED LIST changes: -ACET250T3 PO; -ALBU6.7H9 INH; +ALBU8.5H8 IH; +AMLO10TA PO; +CARV3.12 PO; -FLUT16SP26; +FLUT16SP26 NS; +FURO80TA87 PO; +IPRA3AMP9 NEB; +LISI2.5T2 PO; -MONT10TA24 PO; +MONT10TA26 PO; -NOR5T PO
[2019-09-12] MEDS ORDERED: ipratropium/albuterol 3ml nebule NEB ONE (10:30)
[2019-09-12] MEDS ORDERED: predniSONE 20 mg tablet PO ONE (10:30)
[2019-09-12 10:32] LABS: BASOPHILS % (AUTO) 0.3 % (0-1); EOSINOPHILS # (AUTO) 0.2 X10'3 (0-0.9); EOSINOPHILS % (AUTO) 1.3 % (0-6); HEMATOCRIT 40.2 % (35.0-45.0); HEMOGLOBIN 13.2 g/dl (12.0-16.0); LYMPHOCYTES # (AUTO) 0.5 X10'3 (1.1-4.8); LYMPHOCYTES % (AUTO) 3.6 % (21-51); MEAN CORPUSCULAR HEMOGLOBIN 29.7 PG (27.0-31.0); MEAN CORPUSCULAR HGB CONC 32.8 g/dL (33.0-36.5); MEAN CORPUSCULAR VOLUME 90.4 FL (78-98); MONOCYTES # (AUTO) 1.2 X10'3 (0-0.9); MONOCYTES % (AUTO) 7.6 % (2-12); NEUTROPHILS # (AUTO) 13.1 X10'3 (1.8-7.7); NEUTROPHILS % (AUTO) 87.2 % (42-75); PLATELET COUNT 200 X10'3 (140-440); RED BLOOD COUNT 4.45 X10'6 (4.20-5.60); RED CELL DISTRIBUTION WIDTH 14.6 % (11.5-14.5); WHITE BLOOD COUNT 15.1 X10'3 (4.5-11.0)
[2019-09-12 10:48] LABS: ALANINE AMINOTRANSFERASE 13 U/L (12-78); ALBUMIN 3.6 G/DL (3.4-5.0); ALBUMIN/GLOBULIN RATIO 0.8 (1.1-1.5); ALKALINE PHOSPHATASE 80 IU/L (46-116); ASPARTATE AMINO TRANSFERASE 21 U/L (10-37); BILIRUBIN,TOTAL 0.5 MG/DL (0.1-1.0); BLOOD UREA NITROGEN 19 MG/DL (7-18); BUN/CREATININE RATIO 24.4 (6.6-38.0); CALCIUM 9.4 MG/DL (8.5-10.1); CHLORIDE 96 MMOL/L (99-107); CREATININE 0.78 MG/DL (0.40-0.90); GLUCOSE 115 MG/DL (70-104); POTASSIUM 4.7 MMOL/L (3.5-5.1); SODIUM 142 MMOL/L (135-145); TOTAL PROTEIN 7.9 G/DL (6.4-8.2); eGFR 72 ML/MIN
[2019-09-12] MEDS ORDERED: normal saline 1000ml 1,000 ML IV ONE (11:10)
[2019-09-12 11:11] LABS: ANION GAP 2 (8-16)
[2019-09-12] MEDS ORDERED: iohexol 350MG/ML 100ml bottle IV ONE (11:13)
[2019-09-12 11:14] LABS: TOTAL CARBON DIOXIDE 44.5 MMOL/L (24-32)
--- NOTE | 2019-09-12 12:21 | NUR ---
PIV attempted by multiple RN's and using US without success. PA notified, and PICC nurse to be paged.
[2019-09-12 13:59] VITALS: BP 130/62
[2019-09-12] MEDS ORDERED: AZIT250T82 PO (14:33)
[2019-09-12] MEDS ORDERED: PRED20TA PO (14:33)
[2019-09-13] MEDS ORDERED: ipratropium/albuterol 3ml nebule ONE (08:02)
[2019-09-13] MEDS ORDERED: LISI2.5T89 PO (14:31)
[2019-09-13] MEDS ORDERED: AZIT250T83 PO (14:38)
[2019-09-13] MEDS ORDERED: CARV3.122 PO (19:45)
== END 2019-09-12 15:17 | disposition home or self-care (01) ==
LOC: ER 09:40
DX: J44.1 Chronic obstructive pulmonary disease with (acute) exacerbation (principal); I50.9 Heart failure, unspecified; I11.0 Hypertensive heart disease with heart failure; G47.30 Sleep apnea, unspecified; M81.0 Age-related osteoporosis without current pathological fracture; Z87.891 Personal history of nicotine dependence; Z91.041 Radiographic dye allergy status; Z91.048 Other nonmedicinal substance allergy status; Z79.82 Long term (current) use of aspirin; Z79.899 Other long term (current) drug therapy
CPT/HCPCS: 36415; 71046; 71275; 76937; 80053; 83605; 83880; 84145; 84484; 85025; 87040; 93005; 94640; 99285; J7030; J7512; Q9967; 94760